=== PATIENT | female | born 1985 | race American Indian/Alaskan Native ===

== ENCOUNTER 2022-05-29 10:13 | Emergency (ER) | payer MEDICAID ==
--- NOTE | 2022-05-29 11:32 | Emergency Department Report ---
Chief Complaint: Abdominal Pain Stated Complaint: ABD PAIN/VOMITING - HPI History of Present Illness: 37-year-old female presenting with vaginal spotting. Patient reports she is 13 weeks symptoms started about 2 days ago. - ROS Review of Systems: reports abdominal pain, she denies fever, nausea vomiting, weakness, dizziness, headache, dysuria, - Exam Vital Signs: Vital Signs 05/29/22 10:13 Pulse Rate 110 H Blood Pressure 140/90 [Right] O2 Sat by Pulse 99 Oximetry Physical Exam: General: Nontoxic appearing no acute distress Cardiac: Regular rate, normal heart sounds Respiratory: Normal lung sounds bilaterally no use of security controls assessor muscles GI/-normal sounds, nontender no guarding Musculoskeletal-normal inspection full range of motion Neuro-alert oriented x4. In the setting of a significantly high volume and record number of patients presenting to the emergency department and the fact that we have a limited space to see patients we have implemented the provider in triage protocol this allows an expedited initial exam of patients that might otherwise have left without being seen or who would wait longer than usual to be seen by provider. I i nterviewed the patient and performed a limited physical exam. This patient is a pulled from the waiting room to triage room for an initial assessment of adrenal studies and then returned to the waiting room pending results of the studies. The ultimate final evaluation and disposition may be performed by another provider depending on room and provider availability. MSE screening note: Focused history and physical exam performed. Due to findings the following was ordered: ED Disposition for MSE Condition: Stable Instructions: Abdominal Pain (ED)
[2022-05-29 14:50] LABS: Mean Corpuscular HGB Conc 29 % (30-34); Red Blood Count 4.95 M/mm3 (3.65-5.03); Red Cell Distribution Width 19.8 % (13.2-15.2)
[2022-05-29 14:54] LABS: Hematocrit 31.9 % (30.3-42.9); Hemoglobin 9.4 gm/dl (10.1-14.3); Mean Corpuscular Volume 65 fl (79-97)
[2022-05-29 14:56] LABS: Alanine Aminotransferase 43 units/L (7-56); Albumin 4.3 g/dL (3.9-5); BUN/Creatinine Ratio 16; Blood Urea Nitrogen 14 mg/dL (7-17); Calcium 10.4 mg/dL (8.4-10.2); Hemolysis Index 16
[2022-05-29 15:51] LABS: Platelet Count 169 K/mm3 (140-440)
[2022-05-29] MEDS ORDERED: IBUPROFEN 800 MG TAB PO ONE (15:51)
--- NOTE | 2022-05-29 16:05 | Emergency Department Report ---
ED Abdominal Pain HPI - General Chief Complaint: Abdominal Pain Stated Complaint: ABD PAIN/VOMITING PUI?: No Time Seen by Provider: 05/29/22 15:39 Source: patient Mode of arrival: Ambulatory Limitations: No Limitations - History of Present Illness Severity scale (0 -10): 10 - Related Data Allergies Allergy/AdvReac Type Severity Reaction Status Date / Time No Known Allergies Allergy Verified 05/29/22 10:34 ED Review of Systems ROS: Stated complaint: ABD PAIN/VOMITING Other details as noted in HPI Comment: All other systems reviewed and negative ED Past Medical Hx - Past Medical History Previous Medical History?: No - Surgical History Past Surgical History?: No - Family History Family history: no significant - Social History Smoking Status: Never Smoker Substance Use Type: None ED Physical Exam - General Limitations: No Limitations General appearance: alert, in no apparent distress - Head Head exam: Present: atraumatic, normocephalic - Eye Eye exam: Present: normal appearance - ENT ENT exam: Present: mucous membranes moist - Neck Neck exam: Present: normal inspection - Respiratory Respiratory exam: Present: normal lung sounds bilaterally. Absent: respiratory distress - Cardiovascular Cardiovascular Exam: Present: regular rate, normal rhythm. Absent: systolic murmur, diastolic murmur, rubs, gallop - GI/Abdominal GI/Abdominal exam: Present: soft, normal bowel sounds - Extremities Exam Extremities exam: Present: normal inspection - Back Exam Back exam: Present: normal inspection - Neurological Exam Neurological exam: Present: alert, oriented X3 - Psychiatric Psychiatric exam: Present: normal affect, normal mood - Skin Skin exam: Present: warm, dry, intact, normal color. Absent: rash ED Course Vital Signs 05/29/22 10:13 Pulse Rate 110 H Blood Pressure 140/90 [Right] O2 Sat by Pulse 99 Oximetry ED Medical Decision Making - Lab Data Result diagrams: 05/29/22 14:12 05/29/22 14:12 - Medical Decision Making Labs 05/29/22 05/29/22 05/29/22 14:12 14:12 15:25 WBC 8.3 RBC 4.95 Hgb 9.4 L Hct 31.9 MCV 65 L MCH 19 L MCHC 29 L RDW 19.8 H Plt Count 169 Sodium 134 L Potassium 4.6 Chloride 96.7 L Carbon Dioxide 28 Anion Gap 14 BUN 14 Creatinine 0.9 Estimated GFR > 60 BUN/Creatinine Ratio 16 Glucose 103 H Calcium 10.4 H Total Bilirubin 0.30 AST 47 H ALT 43 Alkaline Phosphatase 87 Total Protein 8.7 H Albumin 4.3 Albumin/Globulin Ratio 1.0 Lipase 12 L Urine Color Straw Urine Turbidity Hazy Specific [place] (Man) 1.025 Ur Protein (Man) 1+ Ur Ketones (Man) Negative Ur Nitrite (Man) Negative Ur Reducing Substances Not Reportable Urine Bilirubin (Man) Small Urine Ictotest Negative Leukocyte Esterase (Man) 1+ Urine WBC (Auto) 15.0 H Urine RBC (Auto) 54.0 U Epithel Cells (Auto) 17.0 H Urine Bacteria (Auto) 1+ Urine RBC (Manual) Negative Ur Renal Epithelial Cell 2 Hyaline Casts 3 Urine Mucus 3+ Ur Yeast w Hyphae 1+ Urine Yeast (Budding) 2+ Urine HCG, Qual Negative Vital Signs 05/29/22 10:13 Pulse Rate 110 H Blood Pressure 140/90 [Right] O2 Sat by Pulse 99 Oximetry LABS NOTED PREG NEG UA NOTED 1L NS/TORADOL/ROCEPHIN IN ER DC HOME ON BACTRIM DC HOME WITH DC PLAN OF CARE INCLUDING DIET, MEDS, ACTIVITY AND FOLLOW UP. PT VERBALIZES UNDERSTANDING OF PLAN OF CARE. Critical care attestation.: If time is entered above; I have spent that time in minutes in the direct care of this critically ill patient, excluding procedure time. ED Disposition Clinical Impression: UTI (urinary tract infection) Disposition: 01 HOME / SELF CARE / HOMELESS Is pt being admited?: No Does the pt Need Aspirin: No Condition: Stable Instructions: Abdominal Pain (ED), Urinary Tract Infection, Adult, [id number] Additional Instructions: MEDS ORDERED TODAY FOLLOW UP WITH PCP NEXT WEEK REFERRAL BELOW DRINK A LOT OF WATER MOTRIN OR TYLENOL FOR PAIN DIET AND ACTIVITY TOLERATED Referrals: EDEN SONG MD [Primary Care Provider] - 3-5 Days WU SANCHEZ MD [Staff Physician] - 3-5 Days Forms: Work/School Release Form(ED) Time of Disposition: 17:11
[2022-05-29 16:40] LABS: Bacteria,Urine 1+ /HPF (Negative); Hyaline Casts,Urine 3 /LPF; Mucus,Urine 3+ /HPF; Renal Epithelial Cells,Urine 2 /LPF
[2022-05-29] MEDS ORDERED: SODIUM CHLORIDE 0.9% 1000 ML 1,000 ML IV ONE (16:47)
[2022-05-29 16:56] LABS: Color,Urine Straw (Yellow); HCG Qualitative,Urine Negative (Negative); Ictotest,Urine Negative (Negative)
[2022-05-29] MEDS ORDERED: ONDANSETRON 4 MG/2 ML INJ IV ONE (17:07)
[2022-05-29] MEDS ORDERED: cefTRIAXone/NS 1 GM/50 ML 1 GM/50 ML BAG IV ONE (17:07)
[2022-05-29] MEDS ORDERED: KETOROLAC 30 MG/1 ML INJ IV ONE (17:07)
[2022-05-29 17:59] VITALS: BP 137/86
== END 2022-05-29 18:06 | disposition home or self-care (01) ==
LOC: ED 10:13
DX: N39.0 Urinary tract infection, site not specified (principal); R11.10 Vomiting, unspecified
CPT/HCPCS: 36415; 80053; 81001; 81025; 83690; 85027; 87086; 99283